=== PATIENT | male | born 1955 | race Caucasian/White ===

== ENCOUNTER → 2020-06-10 | Outpatient (CLI) | payer OTHER ==
--- NOTE | 2020-06-12 14:59 | MR ---
EXAMINATION TYPE: MR cervical spine wo con DATE OF EXAM: 06/12/2020 COMPARISON: None HISTORY: Neck pain into rashaun upper extremities, decreased range of motion Multiplanar multiecho imaging of the cervical spine was performed without contrast. There is metal artifact from anterior fusion surgery from C3 to C6. Vertebra have normal alignment. C ervical spinal cord appears normal. There is no edema. There is no cervical spinal stenosis. Brainste m appears intact. There is mild multilevel cervical hypertrophic facet arthropathy. There is no evide nce of a compression fracture. IMPRESSION: Multilevel fusion surgery. No evidence of cervical disc herniation or spinal stenosis.
== END | disposition home or self-care (01) ==
LOC: RADMRIMAIN 09:31
PROVIDERS: ATTEND Family Medicine
DX: M54.2 Cervicalgia (principal); Z98.1 Arthrodesis status
CPT/HCPCS: 72141